=== PATIENT | male | born 1995 | race Caucasian/White ===

== ENCOUNTER 2016-12-18 00:44 | Emergency (ER) | payer BC ==
[~2016-12-18] VITALS: Ht 165.1 cm; Wt 85.0 kg
[~2016-12-18 00:44] MED LIST: NAPR500 PO; OMEP20CA2 PO
[2016-12-18 00:48] VITALS: BP 161/98; PULSE 50; RESP 16; TEMP 97.5; O2SAT 99
[2016-12-18] MEDS ORDERED: KETOROLAC TROMETHAMINE 60 MG/2 ML (IM) VIAL IM ONE (01:00)
[2016-12-18] MEDS ORDERED: PENI500T PO (01:05)
[2016-12-18] MEDS ORDERED: TRAM50TA PO (01:05)
[2016-12-18] MEDS ORDERED: NAPR500T2 PO (01:05)
--- NOTE | 2016-12-18 01:06 | PD ---
HPI Chief Complaint: dental pain Time Seen by Provider: 00:54 Travel History International Travel<30 days: No Contact w/Intl Traveler<30days: No History of Present Illness HPI This is a 21-year-old male who presents to the emergency department with dental pain in his left tooth that's been going on intermittently for 2 weeks, constant , severe and worsening tonight keeping him from sleeping, feeling like a sharp aching pain in his left lower jaw. He did go to the dentist today but because of insurance reasons he was unable to be seen. He denies any fevers or chills and hasn't noticed any swelling. PFSH Past Medical History Medical History: Denies Significant Hx Diminished Hearing: No GERD: Yes Social History Alcohol Use: No Tobacco Use: Yes (1 PPD) Substance Use: No Allergies-Medications (Allergen,Severity, Reaction): Coded Allergies: No Known Allergies (Unverified , 01/25/16) Reported Meds & Prescriptions Reported Meds & Active Scripts Active Naprosyn (Naproxen) 500 Mg Tab 500 Mg PO BID PRN Reported Omeprazole 20 Mg Cap 1 Cap PO BID Review of Systems Except as stated in HPI: all other systems reviewed are Neg Physical Exam Narrative GENERAL: Well-appearing, no acute distress, nontoxic SKIN: Warm and dry. HEAD: Atraumatic. Normocephalic. ENT: No nasal bleeding or discharge. Moist mucous membranes. Fractured left posterior molar with pulp exposed, inflamed. MUSCULOSKELETAL: No obvious deformities. Moving all extremities. NEUROLOGICAL: Awake and alert. No obvious cranial nerve deficits. Motor grossly within normal limits. Normal speech. PSYCHIATRIC: Appropriate mood and affect; insight and judgment normal. Data Data Last Documented VS Vital Signs Date Time Temp Pulse Resp B/P (MAP) Pulse Ox O2 Delivery O2 Flow Rate FiO2 12/18/16 00:48 97.5 50 16 161/98 (119) 99 MDM Medical Decision Making Medical Screen Exam Complete: Yes Emergency Medical Condition: Yes Differential Diagnosis Dental abscess, dental pain, Ronny angina Narrative Course This is a 21-year-old male who presents to the emergency department with severe left dental pain. He has no signs of Ronny's angina or significant abscess on exam. He was given Toradol the emergency department and will be discharged home with pain control and antibiotics. Diagnosis Primary Impression: Pain, dental Additional Instructions: If you develop severe pain, swelling, difficulty swallowing or difficulty breathing return to the emergency department. Follow up with a dentist tomorrow. Med/Other Pt SpecificInfo: Prescription(s) given Scripts Tramadol (Tramadol) 50 Mg Tab 50 MG PO Q6H Y for PAIN, #10 TAB 0 Refills Prov: Berkley Gonzales MD 12/18/16 Penicillin V Potassium (Penicillin V Potassium) 500 Mg Tab 500 MG PO Q8H for Infection for 7 Days, #21 TAB 0 Refills Prov: Berkley Gonzales MD 12/18/16 Naproxen (Naproxen) 500 Mg Tab 500 MG PO BID Y for PAIN SCALE 4 TO 10, #10 TAB 0 Refills Prov: Berkley Gonzales MD 12/18/16 Disposition: 01 DISCHARGE HOME Condition: Stable Berkley Gonzales MD Dec 18, 2016 01:06
== END 2016-12-18 01:34 | disposition home or self-care (01) ==
LOC: PHED 00:44
DX: K08.89 Other specified disorders of teeth and supporting structures (principal); F17.200 Nicotine dependence, unspecified, uncomplicated
CPT/HCPCS: 96372; 99284; J1885